=== PATIENT | male | born 1935 | race Two or more races ===

== ENCOUNTER 2018-04-27 06:21 | Day surgery (SDC) | payer OTHER ==
[~2018-04-27 06:21] MED LIST: DIOVAN PO; M.V.I. ADULT10 ML PO; [UNRECOGNIZED DRUG - OTHER] PO
== END 2018-04-27 17:05 | disposition home or self-care (01) ==
LOC: CIR.AMB 06:21
DX: K40.90 Unilateral inguinal hernia, without obstruction or gangrene, not specified as recurrent (principal)